=== PATIENT | female | born 1955 | race Caucasian/White ===

== ENCOUNTER 2016-11-18 08:39 | Inpatient (IN) | payer BC ==
[2016-11-13 14:01] LABS: BASOPHILS 0.3 %; BASOPHILS ABSOLUTE 0.03 10/3/uL (0.0-0.16); EOSINOPHILS 1.3 %; EOSINOPHILS ABSOLUTE 0.12 10/3/uL (0.0-0.53); HEMATOCRIT 40.6 % (36.0-48.0); HEMOGLOBIN 14.2 g/dL (12.0-16.0); IMMATURE GRANULOCYTES 0.3 %; IMMATURE GRANULOCYTES ABSOLUTE 0.03 10/3/uL (0.0-0.11); LYMPHOCYTES 31.3 %; LYMPHOCYTES ABSOLUTE 2.84 10/3/uL (0.67-4.30); MEAN CORPUSCULAR HEMOGLOB 34.8 pg (26.0-34.0); MEAN PLATELET VOLUME 12.8 fL (9.2-13.0); MONOCYTES 7.9 %; MONOCYTES ABSOLUTE 0.72 10/3/uL (0.21-1.20); NEUTROPHILS 58.9 %; NEUTROPHILS ABSOLUTE 5.33 10/3/uL (2.02-8.40); PLATELET COUNT 161 10/3/uL (150-400); RBC DISTRIBUTION WIDTH 12.5 % (12.0-16.0); RED CELL COUNT 4.08 10/6/uL (4.0-5.6); WHITE BLOOD CELLS 9.1 10/3/uL (4.5-10.5)
[2016-11-13 14:02] LABS: MANUAL DIFF NO %; MEAN CORPUSCULAR VOLUME 99.5 fL (80-100)
[2016-11-13 14:12] LABS: PARTIAL THROMBO TIME 27.5 SEC (22.5-37.2)
[2016-11-13 14:13] LABS: PROTIME (NOT ORD) 13.1 SEC (12.0-14.5)
[2016-11-13 14:16] LABS: A/G RATIO 1.1 (0.7-1.9); ALBUMIN 4.1 G/DL (3.5-5.0); ALKALINE PHOSPHATASE 85 U/L (45-117); BUN (BLOOD UREA NITROGEN) 13 MG/DL (6-23); CALCIUM, SERUM 8.9 MG/DL (8.5-10.4); CHLORIDE, SERUM 106 MMOL/L (96-112); CO2 (CARBON DIOXIDE) 26 MMOL/L (24-34); GFR AFRICAN AMERICAN 81 ML/MIN (>=60); GFR NON AFRICAN AMERICAN 69 ML/MIN (>=60); GLOBULIN 3.8 G/DL (2.5-4.1); GLUCOSE, SERUM 155 MG/DL (60-99); POTASSIUM, SERUM 4.2 MMOL/L (3.5-5.3); SGOT(AST) 18 U/L (5-40); SGPT(ALT) 23 U/L (5-65); SODIUM, SERUM 141 MMOL/L (135-148); TOTAL BILIRUBIN 1.5 MG/DL (0-1.2); TOTAL PROTEIN 7.9 G/DL (6.0-8.5)
--- NOTE | ~2016-11-18 | OP ---
Record Of Operation [facility] [address]. [address] NAME: DK CHERRY : 57 STATUS : ADM IN PAT#: [id number] AGE: 61 ADM/REG DATE : 11/18/16 MR#: [id number] REPORT SERV DATE: 11/19/16 DICTATED BY: RICARDO VELEZ JR. DATE: 11/18/16 REPORT STATUS : Draft TRANSCRIBED BY: MUNIRA DATE: 11/18/16 DATE OF PROCEDURE: [employer] [employer] COORDINATOR: Diaz Conrad. PROCEDURE: Wound exploration with abdominal wall debridement, removal of mesh. PREOPERATIVE DIAGNOSIS: Abdominal wound with infected mesh. POSTOPERATIVE DIAGNOSIS: Abdominal wound with infected mesh. ANESTHESIA: General. INDICATIONS: The patient has history of Crohn disease and previous intraabdominal surgery. She had previous stoma that was relocated on the left-side and a hernia defect repaired with mesh many years ago. 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 FINDINGS: There was a small opening on the right side. This did extend deeply to area of chronic inflammation with multiple sutures and apparent foreign body material consistent with residual mesh causing this ongoing necrotizing infection. This area was excised completely. Cultures were taken. This did leave a defect and this was closed with a wound VAC. DESCRIPTION OF PROCEDURE: With adequate general anesthesia, the patient was placed in a supine position. The abdomen was prepped and draped sterilely. A transverse elliptical incision was outlined around the opening, incorporating the previous opening. Incision deepened down through the subcutaneous tissues. Then, the tract was excised down to the underlying abdominal wall where the nonviable tissue, foreign body material was excised, incorporating the fascia. A portion of this was submitted for cultures. Remainder to Pathology. Two peritoneal defects were closed with [id number] 0 Vicryl. The wound was irrigated thoroughly with saline. Then wound VAC was placed with black foam and occlusive dressing, and suction of -125. The patient tolerated the procedure well and left the operating room in satisfactory condition. ESTIMATED BLOOD LOSS: 30 mL. FELIX/MUNIRA Arsenio Espino Jr.#: [id number] / [id number] Record Of Operation [address] [place]. [address] NAME: DK CHERRY : 57 STATUS : ADM IN PAT#: [id number] AGE: 61 ADM/REG DATE : 11/18/16 MR#: [id number] REPORT SERV DATE: 11/19/16 DICTATED BY: RICARDO VELEZ JR. DATE: 11/18/16 REPORT STATUS : Draft TRANSCRIBED BY: MUNIRA DATE: 11/18/16 CC: Ricardo Velez Jr., M.D.
[~2016-11-18 08:39] MED LIST: ACTOS15 PO; ADVAIR250 INH; ALEVE220 MG PO; ALTACE10 MG PO; ASAB PO; AVANDIA4 PO; B12; BEN25 PO; CALTRA600D PO; CANASA1SUP PR; FISH-EPA1000 MG PO; FOLIC ACID400 MC1 PO; MELATONIN5 M1 PO; OMEGA 3 6 9; PENTASA500 MG PO; PROVHFA INH; PURINETHOL50 MG PO; REMICADE IV; VIT D PO; VITC500 PO; ZOCOR40 PO; ZOL50 PO; ZYRTEC ALLGY10 MG PO
[2016-11-19 05:40] LABS: BASOPHILS 0.2 %; BASOPHILS ABSOLUTE 0.02 10/3/uL (0.0-0.16); EOSINOPHILS 0.6 %; EOSINOPHILS ABSOLUTE 0.05 10/3/uL (0.0-0.53); IMMATURE GRANULOCYTES 0.1 %; IMMATURE GRANULOCYTES ABSOLUTE 0.01 10/3/uL (0.0-0.11); LYMPHOCYTES 24.9 %; LYMPHOCYTES ABSOLUTE 2.12 10/3/uL (0.67-4.30); MEAN CORPUS HGB CONC 34.7 g/dL (32.0-36.0); MEAN CORPUSCULAR HEMOGLOB 34.5 pg (26.0-34.0); MEAN CORPUSCULAR VOLUME 99.4 fL (80-100); MEAN PLATELET VOLUME 12.4 fL (9.2-13.0); MONOCYTES 8.8 %; MONOCYTES ABSOLUTE 0.75 10/3/uL (0.21-1.20); NEUTROPHILS 65.4 %; NEUTROPHILS ABSOLUTE 5.57 10/3/uL (2.02-8.40); PLATELET COUNT 133 10/3/uL (150-400); RBC DISTRIBUTION WIDTH 12.7 % (12.0-16.0); RED CELL COUNT 3.48 10/6/uL (4.0-5.6); WHITE BLOOD CELLS 8.5 10/3/uL (4.5-10.5)
[2016-11-19 05:41] LABS: HEMATOCRIT 34.6 % (36.0-48.0); MANUAL DIFF NO %
[2016-11-19 06:00] LABS: BUN (BLOOD UREA NITROGEN) 10 MG/DL (6-23); CALCIUM, SERUM 8.3 MG/DL (8.5-10.4); CHLORIDE, SERUM 105 MMOL/L (96-112); CO2 (CARBON DIOXIDE) 26 MMOL/L (24-34); CREATININE 0.66 MG/DL (0.55-1.02); GFR AFRICAN AMERICAN 111 ML/MIN (>=60); GFR NON AFRICAN AMERICAN 96 ML/MIN (>=60); POTASSIUM, SERUM 3.8 MMOL/L (3.5-5.3); SODIUM, SERUM 138 MMOL/L (135-148)
[2016-11-19 06:02] LABS: GLUCOSE, SERUM 100 MG/DL (60-99)
[2016-11-20] MEDS ORDERED: BACTRIM DS1 TAB PO (09:39)
[2016-11-20] MEDS ORDERED: PCET PO (09:40)
== END 2016-11-20 17:41 | disposition home health service (06) | DRG 908 ==
LOC: SDC/OF 08:39 → PACU 13:56 → 5SO 17:08
PROVIDERS: Specialist
PROC: 0WPF0JZ Removal of Synthetic Substitute from Abdominal Wall, Open Approach (ICD-10-PCS; principal; 2016-11-18 10:15)
DX: T85.79XA Infection and inflammatory reaction due to other internal prosthetic devices, implants and grafts, initial encounter (principal); L02.211 Cutaneous abscess of abdominal wall; I10 Essential (primary) hypertension; D75.82 Heparin induced thrombocytopenia (HIT); K50.00 Crohn's disease of small intestine without complications; B95.62 Methicillin resistant Staphylococcus aureus infection as the cause of diseases classified elsewhere; E11.9 Type 2 diabetes mellitus without complications; F17.210 Nicotine dependence, cigarettes, uncomplicated; E78.00 Pure hypercholesterolemia, unspecified; J44.9 Chronic obstructive pulmonary disease, unspecified; Z90.49 Acquired absence of other specified parts of digestive tract; Z98.890 Other specified postprocedural states; Z88.0 Allergy status to penicillin; Z88.8 Allergy status to other drugs, medicaments and biological substances; Z88.1 Allergy status to other antibiotic agents; Z79.82 Long term (current) use of aspirin; Z79.899 Other long term (current) drug therapy; Z80.41 Family history of malignant neoplasm of ovary
CPT/HCPCS: 36415; 71020; 80048; 80053; 82962; 83735; 85025; 85610; 85730; 86850; 86900; 86901; 87015; 87070; 87075; 87077; 87102; 87116; 87186; 87205; 88304; 93005; 94640; A9270-GY; J1170; J2175; J2270; J2405; J2710; J3370